=== PATIENT | male | born 1965 | race Two or more races ===

== ENCOUNTER → 2017-06-13 | Outpatient (CLI) | payer MEDICARE, MEDICAID ==
[2017-06-13 17:37] LABS: ANION GAP 8 MEQ/L (8-16); BLOOD UREA NITROGEN 14 MG/DL (7-18); CARBON DIOXIDE LEVEL 29 MEQ/L (21-32); CHLORIDE LEVEL 102 MEQ/L (98-107); CREATININE FOR GFR 1.02 MG/DL (0.70-1.30); GLOMERULAR FILTRATION RATE > 60.0 (>56); GLUCOSE, FASTING 140 MG/DL (70-105); POTASSIUM SERUM 4.3 MEQ/L (3.5-5.1); SODIUM LEVEL 139 MEQ/L (136-145)
[2017-06-13 17:45] LABS: MEAN CORPUSCULAR HEMOGLOBIN 25.1 pg (27.0-33.0); MEAN CORPUSCULAR HGB CONC 31.6 g/dl (32.0-36.5); MEAN CORPUSCULAR VOLUME 79.2 fl (80.0-96.0); RED CELL DISTRIBUTION WIDTH 16.3 % (11.5-14.5)
[2017-06-13 17:51] LABS: CBCMD ORDERED? YES (YES)
[2017-06-13 20:23] LABS: ANISOCYTOSIS 1+
[2017-06-13 20:24] LABS: HYPOCHROMASIA 1+; MICROCYTOSIS 1+
== END ==
LOC: M LAB 16:15
PROVIDERS: ATTEND Surgery Vascular Surgery
DX: I73.9 Peripheral vascular disease, unspecified (principal); E11.621 Type 2 diabetes mellitus with foot ulcer

== ENCOUNTER → 2017-06-13 | Outpatient (REF) | payer MEDICARE, MEDICAID | LOC: M SFHCPLAZ 14:55 | PROVIDERS: ATTEND Internal Medicine Infectious Disease | DX: E11.621 Type 2 diabetes mellitus with foot ulcer (principal) ==

== ENCOUNTER → 2017-07-03 | Outpatient (CLI) | payer MEDICARE, MEDICAID ==
[~2017-07-03] MED LIST: HEPARIN 1,000 UNITS/ML 10ML VIAL (FOR RADIOLOGY& DIALYSIS ONLY) As Ordered ONE; ISOVUE-300 61% 50ML VIAL (Q9967) As Ordered ONE; MIDAZOLAM INJ 2 MG/2 ML VIAL (J2250) As Ordered ONE; fentaNYL 100 MCG/2 ML INJECTION (J3010) As Ordered ONE
--- NOTE | 2017-08-08 08:06 | REPIR ---
DATE OF PROCEDURE: 07/03/2017 PREPROCEDURE DIAGNOSIS: Nonhealing right foot ulcer status post fourth and fifth toe removal. POSTPROCEDURE DIAGNOSIS: Nonhealing right foot ulcer status post fourth and fifth toe removal. PROCEDURE: Aortogram and iliofemoral angiogram, selective right common femoral artery catheter placement with right lower extremity angiogram, selective right superficial femoral artery angiogram, right lower extremity angiogram Mynx closure of the left common femoral arteriotomy. SURGEON: Dr. Leonardo Melendez. JEWELRY MODEL MAKER: Ita Arora and Ivone Horan. ANESTHESIA: Local with sedation with 4 mg Versed, 50 mcg of Fentanyl and 10 mL of 2% lidocaine. ESTIMATED BLOOD LOSS: FLUORO TIME: 2.22 minutes. CONTRAST: 25 mL. SEDATION TIME: 8:34 a.m. to 9:10 a.m. for a total of 36 minutes. The sedation and cardiopulmonary monitoring were performed by the RN in the room under my direct supervision. I was present for and directed the entire case. COMPLICATIONS: None. DRAINS: None. SPECIMENS: None. IMPLANTS: Mynx closure device in the left common femoral arteriotomy closure. INDICATION: The patient is a 52-year-old male who underwent removal of his fourth and fifth toes on his right foot and now has nonhealing ulcers on the right foot. Patient will undergo angiogram with possible angioplasty and stent. Risks, benefits and alternative treatment options were discussed with the patient. PROCEDURE: The patient was taken to the angiography suite and placed supine on the angiography room table and then prepped and draped in a standard surgical fashion. The left common femoral artery was cannulated with a micropuncture needle after anesthetizing the overlying skin with 1% lidocaine. The micropuncture wire was advanced to the micropuncture needle which was upsized to a micropuncture sheath. A [place] wire was advanced through the micropuncture sheath which was upsized to a 5-Polish sheath. An Omniflush catheter was placed in the aorta and aortogram was performed. Catheter was pulled down to the level of the bifurcation of the iliac arteries and an iliofemoral angiogram was performed. Catheter was directed over the bifurcation of the iliac arteries and placed in the right common femoral artery and a right lower extremity angiogram was performed. Catheter was then advanced into the superficial femoral artery as far distal as possible and the right lower extremity angiogram was performed. No intervention was required. Catheters and wires were removed and a Mynx closure device was used to close the arteriotomy and the left common femoral artery with an additional 10 minutes of adjunctive pressure applied for hemostasis. Steri-Strips were then applied. Patient tolerated the procedure well. All instrument, sponge and needle counts were correct at the end of the case. There were no complications. Dr. Melendez was present for and directed the entire case. Patient was transferred to the holding area and subsequently discharged in stable condition. RADIOLOGICAL SUPERVISION INTERPRETATION: The aortogram showed the aorta to be widely patent as well as the celiac, superior mesenteric and renal arteries. The infrarenal aorta was widely patent with good filling of the lumbar vessels. The common and celiac, external and internal iliac arteries were patent bilaterally. The left common femoral and proximal superficial femoral and profunda femoris arteries were patent. The right lower extremity showed no significant disease in the common femoral, superficial femoral, popliteal or tibial peroneal vessels. A Mynx closure device was used to close the arteriotomy in the left common femoral artery.
== END | disposition home or self-care (01) ==
LOC: M IRPRO 07:25
PROVIDERS: ATTEND Surgery Vascular Surgery
DX: L97.519 Non-pressure chronic ulcer of other part of right foot with unspecified severity (principal); I73.9 Peripheral vascular disease, unspecified
CPT/HCPCS: 36247; 75625; 75716; 75774; 99152; 99153; C1760; C1769; C1887; C1894; G0269; J2250; J3010; Q9967

== ENCOUNTER 2018-12-18 14:46 | Emergency (ER) | payer MEDICARE, MEDICAID ==
[~2018-12-18] VITALS: Ht 175.3 cm; Wt 111.4 kg
[2018-12-18] MEDS ORDERED: COUM1TAB17 PO (14:53)
[2018-12-18] MEDS ORDERED: COUM6TAB PO (14:53)
[2018-12-18] MEDS ORDERED: LANTINJ4 SC (15:26)
[2018-12-18] MEDS ORDERED: FURO20TA2 PO (15:26)
[2018-12-18] MEDS ORDERED: SITA50TAB PO (15:26)
[2018-12-18] MEDS ORDERED: ATOR40TA75 PO (15:26)
[2018-12-18] MEDS ORDERED: WARF4TAB52 PO (15:26)
[2018-12-18] MEDS ORDERED: DULO1CAP3 PO ×2 (15:26→15:46)
[2018-12-18] MEDS ORDERED: TRAZ-186 PO (15:26)
[2018-12-18] MEDS ORDERED: HUMA100I5 SC (15:26)
[2018-12-18] MEDS ORDERED: OMEP40CA2 PO (15:26)
[2018-12-18] MEDS ORDERED: GABA-845 PO (15:26)
[2018-12-18] MEDS ORDERED: AMLO10TA5 PO (15:26)
[2018-12-18] MEDS ORDERED: GABA-1171 PO (15:46)
[2018-12-18] MEDS ORDERED: WARF05TA PO (15:46)
[2018-12-18] MEDS ORDERED: TRAZ-160 PO (15:46)
--- NOTE | 2018-12-18 16:02 | REP ---
LUMBAR SPINE, FIVE VIEWS: HISTORY: Back pain. The patient is status post L3 to S1 anterior and posterior spinal fusion and L3 to L5 laminectomy. Metal hardware and bone graft material are present. There is no acute fracture or subluxation. The intervertebral discs are decreased in height consistent with disc degeneration. Osteophytes are present throughout the lumbar spine. The visualized facet joints are normal in appearance. IMPRESSION: The patient is status post L3 to S1 anterior and posterior spinal fusion and L3 to L5 laminectomy. There is anatomic alignment. Electronically Signed by Sukumar Dougherty MD 12/18/2018 04:12 P
[2018-12-18] MEDS ORDERED: NS 1,000 ML IV ONE (16:30)
[2018-12-18 17:06] LABS: BASO # 0.1 10^3/uL (0.0-0.2); BASO % 0.6 % (0.0-1.0); EOS # 0.2 10^3/uL (0.0-0.50); EOS % 1.8 % (0.0-3.0); HEMATOCRIT 38.7 % (42.0-52.0); HEMOGLOBIN 12.1 g/dl (13.5-17.5); LYMPH # 2.7 10^3/uL (1.5-4.5); MEAN CORPUSCULAR HEMOGLOBIN 24.6 pg (27.0-33.0); MEAN CORPUSCULAR HGB CONC 31.3 g/dl (32.0-36.5); MEAN CORPUSCULAR VOLUME 78.7 fl (80.0-96.0); MONO # 0.6 10^3/uL (0.0-0.8); MONO % 5.7 % (0.0-5.0); NEUTROPHILS # 7.1 10^3/uL (1.8-7.7); NEUTROPHILS % 66.6 % (36.0-66.0); PLATELET COUNT, AUTOMATED 317 10^3/uL (150-450); RED BLOOD COUNT 4.92 10^6/uL (4.30-6.10); WHITE BLOOD COUNT 10.7 10^3/uL (4.0-10.0)
--- NOTE | 2018-12-18 17:10 | REP ---
RIGHT KNEE, FOUR VIEWS: HISTORY: Pain. The patient is status-post below the knee amputation. There is no acute fracture or dislocation. The joint spaces are normal in appearance. An osteophyte is present on the patella. Calcifications are present in the soft tissue inferior to the proximal tibial and fibula. IMPRESSION:There is no acute fracture or dislocation. Electronically Signed by Sukumar Dougherty MD 12/18/2018 05:18 P
[2018-12-18] MEDS ORDERED: GABAPENTIN 100 MG CAP PO ONE (17:15)
[2018-12-18] MEDS ORDERED: ACETAMINOPHEN TAB 650MG DOSE (2X325MG) PO ONE (17:15)
[2018-12-18 17:36] LABS: ERYTHROCYTE SEDIMENTATION RATE 19 mm/hr (0-20)
[2018-12-18 18:22] LABS: BLOOD UREA NITROGEN 15 MG/DL (7-18); C REACTIVE PROTEIN QUANTITATIV 0.59 MG/DL (0.00-0.30); CALCIUM LEVEL 8.6 MG/DL (8.5-10.1); CARBON DIOXIDE LEVEL 29 MEQ/L (21-32); CHLORIDE LEVEL 100 MEQ/L (98-107); CREATININE FOR GFR 0.97 MG/DL (0.70-1.30); GLOMERULAR FILTRATION RATE > 60.0 (>56); GLUCOSE, FASTING 121 MG/DL (70-100); POTASSIUM SERUM 3.9 MEQ/L (3.5-5.1); SODIUM LEVEL 135 MEQ/L (136-145)
[2018-12-18 20:04] VITALS: BP 148/66
== END 2018-12-18 20:07 | disposition home or self-care (01) ==
LOC: M ED 14:46
DX: M54.5 Low back pain (principal); Z76.0 Encounter for issue of repeat prescription; T81.89XA Other complications of procedures, not elsewhere classified, initial encounter; Y92.9 Unspecified place or not applicable; Y93.9 Activity, unspecified; I25.2 Old myocardial infarction; E11.9 Type 2 diabetes mellitus without complications; I10 Essential (primary) hypertension; Z86.73 Personal history of transient ischemic attack (TIA), and cerebral infarction without residual deficits; K21.9 Gastro-esophageal reflux disease without esophagitis; M43.26 Fusion of spine, lumbar region; M43.27 Fusion of spine, lumbosacral region; Z79.4 Long term (current) use of insulin; Z79.01 Long term (current) use of anticoagulants; Z79.899 Other long term (current) drug therapy; Z88.0 Allergy status to penicillin; Z88.8 Allergy status to other drugs, medicaments and biological substances